=== PATIENT | female | born 1955 | race Caucasian/White ===

== ENCOUNTER → 2022-12-19 06:44 | Outpatient (CLI) | payer MEDICARE, OTHER, SELFPAY ==
--- NOTE | 2022-12-19 06:49 | DI.ECHO.S_ITS ---
[facility]---------+ [facility] +---------+ : : [address] : [address] : : : : [id number] : : : : Phone: [phone]+ Echocardiogram Report + + :Name: TONY WISEMAN Study Date: 12/19/2022 Height: 62 in : :[facility] ReadingLocation: Weight: 130 lb : : Gender: Female BSA: 1.6 m2 : :: 1955 Age: 67 yrs BP: 110/64 mmHg: :Reason For Study: HYPOTHYROIDISM : :Ordering Physician: Massiel COPELANDformed By: Martha Moreno : :Referring: KIRAN COPELAND : + + Interpretation Summary Normal left ventricle size with ejection fraction 55-60%. Mild aortic regurgitation. Mild mitral regurgitation. Mild tricuspid regurgitation. Procedure: A two-dimensional transthoracic echocardiogram with color flow and Doppler was performed. The study quality was technically adequate. There is no prior echocardiogram noted for this patient. The patient was in sinus rhythm with heart rates between 52-63 bpm during the exam. Left Ventricle: The left ventricle is normal in size and wall thickness. The ejection fraction is estimated to be 55-60%. There are no focal wall motion abnormalities. Right Ventricle: The right ventricle is normal in size and function. Atria: The left atrial size is normal. Right atrial size is normal. There is no Doppler evidence for an interatrial shunt. Mitral Valve: The mitral valve is normal in structure and function. There is mild mitral regurgitation. Aortic Valve: The aortic valve is trileaflet. The aortic valve opens well. There is no aortic valve stenosis. There is mild aortic regurgitation. Tricuspid Valve: The tricuspid valve is normal in structure and function. There is mild tricuspid regurgitation. The right ventricular systolic pressure is estimated to be at least 23 mmHg based on an estimated right atrial pressure of 3 mm Hg. Pulmonic Valve: The pulmonic valve leaflets are thin and pliable; valve motion is normal. There is mild pulmonic regurgitation. Great Vessels: The aortic root is normal size. The dimensions of the ascending aorta are normal. The IVC is of normal diameter and collapses greater than 50% with a sniff. This suggests a low right atrial pressure of 3 mm Hg. Pericardium/ Pleura There is no pericardial effusion. There is no pleural effusion. MMode/2D Measurements & Calculations LVIDd: 4.5 cm LVOT diam: 1.9 cm LVIDs: 3.2 cm Ao root diam: 2.8 cm FS: 28.9 % asc Aorta Diam: 2.8 cm IVSd: 0.58 cm Ao Arch Diam (Prox Trans): 2.5 cm LVPWd: 0.55 cm LV aguilar. diameter/BSA (cm/m^2): 2.8 LV sys. diameter/BSA (cm/m^2): 2.0 LA A2 area: 16.8 cm2 RA long axis: 4.1 cm LA A4 area: 16.6 cm2 RA area: 12.0 cm2 LA length (vol): 4.9 cm RA vol: 29.8 ml LA vol: 48.1 ml RA : 18.7 ml/m2 LA vol index: 30.2 ml/m2 IVC diam: 1.5 cm RVD1 (basal): 3.6 cm TAPSE: 1.8 cm Doppler Measurements & Calculations Ao V2 max: 127.1 cm/sec LVOT Max Marco: 93.8 cm/sec Ao V2 mean: 91.1 cm/sec LV V1 max P.5 mmHg Ao max P.5 mmHg LV V1 VTI: 21.0 cm Ao mean P.6 mmHg ARTHUR(I,D): 1.9 cm2 Ao V2 VTI: 30.0 cm ARTHUR(V,D): 2.0 cm2 sev ratio: 0.70 ARTHUR indexed to BSA (cm^2/m^2): 1.2 AI P1/2t: 1003 msec AI dec slope: 115.7 cm/sec2 MV E max marco: 79.1 cm/sec TR max marco: 224.5 cm/sec MV A max marco: 42.4 cm/sec TR max P.2 mmHg MV E/A: 1.9 PA V2 max: 81.1 cm/sec Med Peak E' Marco: 8.4 cm/sec PA V2 mean: 59.2 cm/sec E/E' med: 9.4 PA mean P.6 mmHg Lat Peak E' Marco: 10.5 cm/sec PA pr(Accel): 13.9 mmHg E/E' lat: 7.5 E/e' average: 8.5 MV dec time: 0.17 sec MR ERO: 0.11 cm2 MR PISA: 1.3 cm2 SV(LVOT): 57.2 ml MR flow rate: 56.1 cm3/sec MR PISA radius: 0.45 cm Electronically signed by: Ines Bo on Reading Physician:12/19/2022 08:13 PM
== END ==
PROVIDERS: PCP Physician Assistant; Referring Provider Physician Assistant; Visit Provider Physician Assistant
DX: I08.3 Combined rheumatic disorders of mitral, aortic and tricuspid valves (principal); E03.9 Hypothyroidism, unspecified; H53.9 Unspecified visual disturbance
CPT/HCPCS: 93306